=== PATIENT | female | born 1990 | race Two or more races ===

== ENCOUNTER 2024-08-09 22:42 | Inpatient (IN) | payer MEDICAID, OTHER ==
[~2024-08-09] VITALS: Ht 160 cm; Wt 85.5 kg
[2024-08-09 23:37] LABS: Urine Bacteria MANY /hpf (None Seen); Urine Blood Negative /uL (Negative); Urine Clarity Turbid (Clear); Urine Color Colorless (Yellow); Urine Protein, UAD Negative (Negative); Urine Specific Gravity 1.006 (1.001-1.035); Urine Squamous Epithelial Cell FEW /hpf (<5); Urine Urobilinogen Normal (Negative); Urine WBC 15 /HPF (0-5)
--- NOTE | 2024-08-09 23:49 | ED.PDOC ---
History of Present Illness HPI Comments 33 y/o obese F presents with 2x week history of nonradiating, lower abdominal pain, nausea, vomiting, and diarrhea. Patient endorses on additional onset of chills and blood in her stool, today. She reports only history of DM and HLD. Patient denies having any bloody or bilious vomitus, diarrhea, urinary symptoms, fever, chills, or further associated symptoms. Chief Complaint: Abdominal Pain Time Seen by MD: 23:20 Reviewed Notes: Nurses Notes, Medications, Allergies Allergies: Coded Allergies: NO KNOWN ALLERGIES (Unverified , 08/10/24) Information Source: Patient Mode of Arrival: Ambulatory Severity: Moderate Timing: Weeks Duration: Since onset Prehospital treatment: None Past Medical History PAST MEDICAL HISTORY: High Lipids, HTN Surgical History: Denies all surgeries All Other Systems: Reviewed and Negative (Comprehensive systems review obtained and negative except for what is stated in the HPI.) Physical Exam General Appearance: No Apparent Distress, Obese, Other (appears uncomfortable ) HEENT: Normal ENT Inspection, Pharynx Normal, TMs Normal Neck: Full Range of Motion, Non-Tender, Normal, Normal Inspection Respiratory: Chest Non-Tender, Lungs Clear, No Accessory Muscle Use, No Respiratory Distress, Normal Breath Sounds Cardiovascular: No Edema, No JVD, No Murmur, No Gallop, Normal Peripheral Pulses, Regular Rate/Rhythm Breast Exam: Deferred Gastrointestinal: No Organomegaly, Non Tender, No Pulsatile Mass, Normal Bowel Sounds, Soft Genitalia: Deferred Pelvic: Deferred Rectal: Deferred Extremities: No calf tenderness, Normal capillary refill, Normal inspection, Normal range of motion, Non-tender, No pedal edema Musculoskeletal : Apperance: Normal Neurologic: Alert, egg sorter II-XII nml as Tested, No Motor Deficits, Normal Affect, Normal Mood, No Sensory Deficits Cerebellar Function: Normal Reflexes: Normal Skin: Dry, Normal Color, Warm Lymphatic: No Adenopathy Was a procedure done? Was a procedure done?: No Differential Dx Considerations may include: gastritis, gastroenteritis, viral syndrome, spoiled food, , lower GI bleed, among others X-Ray, Labs, Meds, VS Vital Signs Date Time Temp Pulse Resp B/P (MAP) Pulse Ox O2 Delivery O2 Flow Rate FiO2 08/10/24 01:00 98.0 105 14 119/72 (88) 97 98.0 08/10/24 00:58 Room Air* 0 21 08/10/24 00:45 105 14 119/72 08/09/24 23:32 98.8 114 20 153/82 (105) 98 98.8 Lab Test 08/09/24 23:45 08/09/24 23:20 Range/Units White Blood Count 19.4 H 4.4-10.8 10^3/uL Red Blood Count 5.16 4.0-5.20 10^6/uL Hemoglobin 14.9 12.2-16.2 g/dL Hematocrit 43.9 36.0-46.0 % Mean Corpuscular Volume 85.2 80.0-100.0 fL Mean Corpuscular Hemoglobin 28.9 28.0-32.0 pg Mean Corpuscular Hemoglobin Concent 33.9 32.0-36.0 g/dL Red Cell Distribution Width 13.8 11.8-14.3 % Platelet Count 255 140-450 10^3/uL Mean Platelet Volume 10.5 6.9-10.8 fL Neutrophils (%) (Auto) 77.8 37.0-80.0 % Lymphocytes (%) (Auto) 14.2 10.0-50.0 % Monocytes (%) (Auto) 6.3 0.0-12.0 % Eosinophils (%) (Auto) 1.2 0.0-7.0 % Basophils (%) (Auto) 0.5 0.0-2.0 % Neutrophils # (Auto) 15.1 H 1.6-8.6 10 ^3/uL Lymphocytes # (Auto) 2.8 0.4-5.4 10 ^3/uL Monocytes # (Auto) 1.2 0-1.3 10 ^3/uL Eosinophils # (Auto) 0.2 0-0.8 10 ^3/uL Basophils # (Auto) 0.1 0-0.2 10 ^3/uL Nucleated Red Blood Cells 0.0 % Sodium Level 136 136-145 mmol/L Potassium Level 3.5 3.5-5.1 mmol/L Chloride Level 103 98-107 mmol/L Carbon Dioxide Level 21 20-31 mmol/L Anion Gap 12 5-15 Blood Urea Nitrogen 7 L 9-23 mg/dL Creatinine 0.62 0.550-1.02 mg/dL Glomerular Filtration Rate Calc 119 >90 mL/min BUN/Creatinine Ratio 11.3 10.0-20.0 Serum Glucose 138 H 74-106 mg/dL Calcium Level 9.7 8.7-10.4 mg/dL Total Bilirubin 1.2 H 0.2-1.0 mg/dL Aspartate Amino Transferase (AST) 31 <34 U/L Alanine Aminotransferase (ALT) 47 H 7-40 U/L Alkaline Phosphatase 97 46-116 U/L Total Protein 7.8 5.7-8.2 g/dL Albumin 4.8 3.2-4.8 g/dL Lipase 36 12-53 U/L Urine Color Colorless Yellow Urine Clarity Turbid H Clear Urine pH 6.0 5.0-9.0 Urine Specific [place] 1.006 1.001-1.035 Urine Protein Negative Negative Urine Ketones 2+ H Negative Urine Blood Negative Negative /uL Urine Nitrite Negative Negative Urine Bilirubin Negative Negative Urine Urobilinogen Normal Negative mg/dL Urine Leukocyte Esterase Trace Negative /uL Urine RBC 6 0 - 4 /hpf Urine Microscopic WBC 15 H 0-5 /HPF Urine Squamous Epithelial Cells Few <5 /hpf Urine Bacteria Many H None Seen /hpf Urine Glucose Normal Normal mg/dL Current Medications Medications (Trade) Dose Ordered Sig/Jennie Route Start Time Stop Time Status Last Admin Sodium Chloride 1,000 ml @ 1,000 mls/hr Q1H ONCE IV 08/09/24 23:30 08/10/24 00:29 DC 08/10/24 00:45 Ondansetron HCl (Zofran) 4 mg ONCE ONCE IV 08/09/24 23:30 08/09/24 23:31 DC 08/10/24 00:45 Famotidine (Pepcid Injection) 20 mg ONCE ONCE IV 08/09/24 23:30 08/09/24 23:31 DC 08/10/24 00:45 Morphine Sulfate 4 mg ONCE ONCE IV 08/09/24 23:30 08/09/24 23:31 DC 08/10/24 00:45 Time of 1ST Reevaluation: 23:50 Reevaluation 1ST: Unchanged Patient Education/Counseling: Diagnosis, Treatment Family Education/Counseling: No Family Present SEPSIS Sepsis Screen Date sepsis recognized/suspect: Aug 09, 2024 Time Sepsis recognized/suspect: 2299 Recent Procedure: No On Antibiotic Therapy: No Respiratory Rate >20: No Heart Rate >90: No Temp<36 C (96.8 F) or >38.3 C: No SBP <90 or MAP <65 mmHG: No New Acute Mental Status Change: No Is the patient on CPAP, BIPAP,: No Physician Orders Ct Ab Pel With Iv Con Only (08/09/24 23:26) Lactic Acid W/ Reflex Order (08/10/24 01:08) Blood Culture (08/10/24 01:08) NS (08/10/24 01:15) Cefazolin Ancef (08/10/24 01:15) Metronidazole Ivpb Flagyl (08/10/24 01:15) Vital Signs Date Time Temp Pulse Resp B/P (MAP) Pulse Ox O2 Delivery O2 Flow Rate FiO2 08/10/24 01:00 98.0 105 14 119/72 (88) 97 98.0 08/10/24 00:58 Room Air* 0 21 08/10/24 00:45 105 14 119/72 08/09/24 23:32 98.8 114 20 153/82 (105) 98 98.8 Laboratory Tests Test 08/09/24 23:45 White Blood Count 19.4 10^3/uL (4.4-10.8) H Medications Medications Dose Ordered Sig/Jennie Route Start Time Stop Time Status Last Admin Dose Admin Famotidine 20 mg ONCE ONCE IV 08/09/24 23:30 08/09/24 23:31 DC 08/10/24 00:45 Morphine Sulfate 4 mg ONCE ONCE IV 08/09/24 23:30 08/09/24 23:31 DC 08/10/24 00:45 Ondansetron HCl 4 mg ONCE ONCE IV 08/09/24 23:30 08/09/24 23:31 DC 08/10/24 00:45 Sodium Chloride 1,000 ml @ 1,000 mls/hr Q1H ONCE IV 08/09/24 23:30 08/10/24 00:29 DC 08/10/24 00:45 Departure 1 Departure Time of Disposition: 01:10 (Patient presented with abdominal pain that was concerning for possible appendicits, gastritis, cholecystitis, colitis, gastroenteritis, sbo, or orther possible surgical emergency. Data: 1. I ordered and reviewed the result of at least 3 labs including a CBC, BMP, and Urinalysis. 2. I independently interpreted the following tests: CT Abdoment and Pelvis is concerning for diffuse colitis .Risk:This patient has a high risk of morbidity due to further diagnostic testing or treatment and may suffer from an acute abdominal process disorder. Workup reveals diffuse colitis and patient should be admitted for further workup. and possible expert consultation. ) Impression: Primary Impression: Non-specific colitis Additional Impression: Intractable abdominal pain Disposition: ADMITTED INPATIENT Admit to: Med Surg Condition: Guarded Critical Care Note Critical Care Time?: Yes Critical care comment: Intractable abdominal pain Authorized and Performed by: Isha East MD Total critical care time: Approximately 42 minutes Due to a high probability of clinically significant, life threatening deterioration, the patient required my highest level of preparedness to intervene emergently and I personally spent this critical care time directly and personally managing the patient. This critical care time included obtaining a history; examining the patient; pulse oximetry; ordering and review of studies; arranging urgent treatment with development of a management plan; evaluation of patient's response to treatment; frequent reassessment; and, discussions with other providers. This critical care time was performed to assess and manage the high probability of imminent, life-threatening deterioration that could result in multi-organ failure. It was exclusive of separately billable procedures and treating other patients and teaching time. Please see my other sections and the rest of the note for further information on patient assessment and treatment. Stability Stability form required: No Heart Score Heart Score: Heart Score Response (Comments) Value History N/A 0 EKG N/A 0 Age N/A 0 Risk Factors N/A 0 Troponin N/A 0 Total 0 I personally scribed for ISHA EAST MD ([email or web address]) on 08/09/24 at 23:49. Electronically submitted by Douglas Sandoval ([email or web address]). ISHA EAST MD Aug 09, 2024 23:49
[2024-08-10 00:11] LABS: Basophils # (auto) 0.1 10 ^3/uL (0-0.2); Basophils % (auto) 0.5 % (0.0-2.0); Eosinophils # (auto) 0.2 10 ^3/uL (0-0.8); Eosinophils % (auto) 1.2 % (0.0-7.0); Hematocrit 43.9 % (36.0-46.0); Hemoglobin 14.9 g/dL (12.2-16.2); Lymphocytes # (auto) 2.8 10 ^3/uL (0.4-5.4); Lymphocytes % (auto) 14.2 % (10.0-50.0); Mean Corpuscular Hemoglobin 28.9 pg (28.0-32.0); Mean Corpuscular Hgb Conc. 33.9 g/dL (32.0-36.0); Mean Corpuscular Volume 85.2 fL (80.0-100.0); Monocytes # (auto) 1.2 10 ^3/uL (0-1.3); Monocytes % (auto) 6.3 % (0.0-12.0); Neutrophils # (auto) 15.1 10 ^3/uL (1.6-8.6); Neutrophils % (auto) 77.8 % (37.0-80.0); Platelet Count (auto) 255 10^3/uL (140-450); Red Blood Cells 5.16 10^6/uL (4.0-5.20); Red Cell Distribution Width 13.8 % (11.8-14.3); White Blood Cell 19.4 10^3/uL (4.4-10.8)
[2024-08-10 00:22] LABS: Albumin 4.8 g/dL (3.2-4.8); Alkaline Phosphatase 97 U/L (46-116); Anion Gap 12 (5-15); Aspartate Aminotransferase 31 U/L (<34); BUN/Creatinine Ratio 11.3 (10.0-20.0); Calcium 9.7 mg/dL (8.7-10.4); Carbon Dioxide 21 mmol/L (20-31); Chloride 103 mmol/L (98-107); Lipase 36 U/L (12-53); Potassium 3.5 mmol/L (3.5-5.1); Sodium 136 mmol/L (136-145); Total Protein 7.8 g/dL (5.7-8.2)
[2024-08-10 00:28] LABS: Alanine Aminotransferase 47 U/L (7-40); Bilirubin, Total 1.2 mg/dL (0.2-1.0); Blood Urea Nitrogen 7 mg/dL (9-23); Glucose 138 mg/dL (74-106)
[2024-08-10] MEDS: SODIUM CHLORIDE 0.9% 1,000 ML IV ONE ×2 (00:45→01:41)
[2024-08-10] MEDS: IOHEXOL 300 MG/ML 100ML BOTTLE IJ ONE (00:45)
[2024-08-10] MEDS: ONDANSETRON HCL 4 MG/2 ML VIAL IV ONE (00:45)
[2024-08-10] MEDS: MORPHINE SULFATE 4 MG/ML SYR/VIAL IV ONE (00:45)
[2024-08-10] MEDS: FAMOTIDINE (10MG/ML) 2ML VL IV ONE (00:45)
--- NOTE | 2024-08-10 00:48 | DVH ---
Exam: CT CT AB PEL WITH IV CON ONLY History: abdominal pain, brbpr COMPARISON: None Technique: Multidetector spiral CT of the abdomen and pelvis was performed from lung bases to pubic s ymphysis. Intravenous contrast was administered during this examination. Portal venous imaging was obtained. Axial, coronal and sagittal multiplanar reformats were performed by the technologist on a separate workstation. Radiation Dose : 1. Abdomen/Pelvis: CTDIvol 20 mGy, DLP 1222 mGy*cm. CONTRAST: Type of contrast: Omnipaque Contrast injected: 100 ml Findings: Lung Bases: No acute or significant lung base finding. Normal heart size. No pleural or pericardial effusion. Liver: The liver is normal in size. No focal lesions. Normal hepatic vascular enhancement. Diffuse s teatosis. Gallbladder and Biliary Tree: Unremarkable Spleen: Unremarkable Pancreas: The pancreas is normal in appearance without focal lesions or abnormal enhancement. Adrenal Glands: Unremarkable Kidneys: No hydronephrosis. Bladder: Unremarkable Bowel: The stomach is grossly normal in appearance. Concentric wall thickening throughout the descend ing colon and sigmoid colon is suggestive of infectious/inflammatory colitis. The appendix is not vi sualized; however, no secondary findings of acute appendicitis identified. Ascites: Absent Lymphadenopathy: No mesenteric, retroperitoneal or periportal lymphadenopathy. Abdominal Wall and Mesentery: Unremarkable. Vasculature: The visualized abdominal aorta is normal in size and caliber. Abdominal and pelvic vess els demonstrate normal enhancement. Pelvic Organs: Unremarkable Musculoskeletal: No aggressive focal bony lesions, acute fractures or dislocation. IMPRESSION: 1. Concentric wall thickening throughout the descending colon and sigmoid colon is suggestive of infe ctious/inflammatory colitis. 2. Hepatic steatosis. Radiation optimization: All CT scans at this facility use at least one of these dose optimization jay hniques: automated exposure control mA and/or kV adjustment per patient size (includes targeted exam s where dose is matched to clinical indication) or iterative reconstruction.
[2024-08-10] MEDS: metroNIDAZOLE 500MG/100ML 100 ML IV ONE (01:35)
[2024-08-10] MEDS: ceFAZolin 2 GM/D5W50ml 50 ML IV ONE (03:54)
[2024-08-10] MEDS: PROCHLORPERAZINE EDISYLATE 5 MG/ML 2ML VIAL IV ONE (03:54)
[2024-08-10] MEDS: PROCHLORPERAZINE EDISYLATE 5 MG/ML 2ML VIAL ONE (03:54)
[2024-08-10] MEDS ORDERED: ACETAMINOPHEN 325 MG TAB PO PRN (04:15)
[2024-08-10] MEDS ORDERED: LOPERAMIDE HCL 2 MG CAP/TAB PO PRN (04:15)
[2024-08-10] MEDS ORDERED: ONDANSETRON HCL 4 MG/2 ML VIAL IV PRN (04:15)
[2024-08-10] MEDS ORDERED: HYDROcodone-ACET 5/325MG TAB PO PRN (04:15)
[2024-08-10] MEDS ORDERED: MORPHINE SULFATE INJ 2 MG/ml SYRG IV PRN (04:15)
--- NOTE | 2024-08-10 04:31 | DVHHP2 ---
History of Present Illness Reason for Visit: Abdominal pain History of Present Illness 33-year-old female presents for evaluation of lower abdominal pain that has been ongoing for the past two weeks. She also reports nausea, vomiting and watery diarrhea. She states over the past two days she has developed intermittent fever as well. Denies any other acute complaints at the moment. Past Medical History Dyslipidemia and diabetes mellitus Past Surgical History Denies Family History Noncontributory Smoke: No ALCOHOL: occassional Drugs: None Lives: with Family Review of Systems Review of Systems Review of systems are currently negative otherwise addressed in HPI. Allergies: Coded Allergies: NO KNOWN ALLERGIES (Unverified , 08/10/24) Medications Current Medications Medications Dose Ordered Sig/Jennie Route Start Time Stop Time Status Last Admin Dose Admin Metronidazole 100 ml @ 100 mls/hr Q8HR IV 08/10/24 06:00 UNV Ceftriaxone Sodium 50 ml @ 100 mls/hr DAILY@09 IV 08/10/24 09:00 UNV Acetaminophen/ Hydrocodone Bitart 1 tab Q4HP PRN PO 08/10/24 04:15 Ondansetron HCl 4 mg Q4HP PRN IV 08/10/24 04:15 Acetaminophen 650 mg Q6HP PRN PO 08/10/24 04:15 Morphine Sulfate 2 mg Q4HPRN PRN IV 08/10/24 04:15 Loperamide HCl 2 mg PRN PRN PO 08/10/24 04:15 Pantoprazole Sodium 40 mg DAILY IV 08/10/24 10:00 UNV Exam Vital Signs Vital Signs Date Time Temp Pulse Resp B/P (MAP) Pulse Ox O2 Delivery O2 Flow Rate FiO2 08/10/24 01:00 98.0 105 14 119/72 (88) 97 98.0 08/10/24 00:58 Room Air* 0 21 Exam Gen: 33-year-old female in mild distress, obese Skin: Warm, dry, normal color and texture, no rash. HEENT: Normocephalic atraumatic, mucous membranes moist and pink. Neck: Cervical and supraclavicular nodes normal without enlargement, trachea is midline, thyroid gland is normal without masses. Pulmonary: Clear to auscultation and percussion bilaterally. Cardiac: Regular rate and rhythm. No murmur Abdomen: Soft, lower abdominal tenderness, nondistended, bowel sounds present all 4 quadrants, no guarding, no rigidity, no organomegaly. Extremities: No cyanosis, clubbing, no edema Neuro: Cranial nerves II through XII grossly intact, normal affect and speech, no focal motor deficits. Labs/Xrays ORDERING PHYSICIAN: ISHA TOWNSEND MD PROCEDURE(s): ABPLIV - CT AB PEL WITH IV CON ONLY REASON: abdominal pain, brbpr ORDER NUMBER(s): [id number], ACCESSION NUMBER(s): [id number] Exam: CT CT AB PEL WITH IV CON ONLY History: abdominal pain, brbpr COMPARISON: None Technique: Multidetector spiral CT of the abdomen and pelvis was performed from lung bases to pubic symphysis. Intravenous contrast was administered during this examination. Portal venous imaging was obtained. Axial, coronal and sagittal multiplanar reformats were performed by the technologist on a separate workstation. Radiation Dose : 1. Abdomen/Pelvis: CTDIvol 20 mGy, DLP 1222 mGy*cm. CONTRAST: Type of contrast: Omnipaque Contrast injected: 100 ml Findings: Lung Bases: No acute or significant lung base finding. Normal heart size. No pleural or pericardial effusion. Liver: The liver is normal in size. No focal lesions. Normal hepatic vascular enhancement. Diffuse steatosis. Gallbladder and Biliary Tree: Unremarkable Spleen: Unremarkable Pancreas: The pancreas is normal in appearance without focal lesions or abnormal enhancement. Adrenal Glands: Unremarkable Kidneys: No hydronephrosis. Bladder: Unremarkable Bowel: The stomach is grossly normal in appearance. Concentric wall thickening throughout the descending colon and sigmoid colon is suggestive of infectious/inflammatory colitis. The appendix is not visualized; however, no secondary findings of acute appendicitis identified. Ascites: Absent Lymphadenopathy: No mesenteric, retroperitoneal or periportal lymphadenopathy. Abdominal Wall and Mesentery: Unremarkable. Vasculature: The visualized abdominal aorta is normal in size and caliber. Abdominal and pelvic vessels demonstrate normal enhancement. Pelvic Organs: Unremarkable Musculoskeletal: No aggressive focal bony lesions, acute fractures or dislocation. IMPRESSION: 1. Concentric wall thickening throughout the descending colon and sigmoid colon is suggestive of infectious/inflammatory colitis. 2. Hepatic steatosis. Radiation optimization: All CT scans at this facility use at least one of these dose optimization techniques: automated exposure control mA and/or kV adjustment per patient size (includes targeted exams where dose is matched to clinical indication) or iterative reconstruction. Labs Test 08/10/24 01:14 08/09/24 23:45 08/09/24 23:20 Range/Units Lactic Acid Level 1.2 0.4-2.0 mmol/L White Blood Count 19.4 H 4.4-10.8 10^3/uL Red Blood Count 5.16 4.0-5.20 10^6/uL Hemoglobin 14.9 12.2-16.2 g/dL Hematocrit 43.9 36.0-46.0 % Mean Corpuscular Volume 85.2 80.0-100.0 fL Mean Corpuscular Hemoglobin 28.9 28.0-32.0 pg Mean Corpuscular Hemoglobin Concent 33.9 32.0-36.0 g/dL Red Cell Distribution Width 13.8 11.8-14.3 % Platelet Count 255 140-450 10^3/uL Mean Platelet Volume 10.5 6.9-10.8 fL Neutrophils (%) (Auto) 77.8 37.0-80.0 % Lymphocytes (%) (Auto) 14.2 10.0-50.0 % Monocytes (%) (Auto) 6.3 0.0-12.0 % Eosinophils (%) (Auto) 1.2 0.0-7.0 % Basophils (%) (Auto) 0.5 0.0-2.0 % Neutrophils # (Auto) 15.1 H 1.6-8.6 10 ^3/uL Lymphocytes # (Auto) 2.8 0.4-5.4 10 ^3/uL Monocytes # (Auto) 1.2 0-1.3 10 ^3/uL Eosinophils # (Auto) 0.2 0-0.8 10 ^3/uL Basophils # (Auto) 0.1 0-0.2 10 ^3/uL Nucleated Red Blood Cells 0.0 % Sodium Level 136 136-145 mmol/L Potassium Level 3.5 3.5-5.1 mmol/L Chloride Level 103 98-107 mmol/L Carbon Dioxide Level 21 20-31 mmol/L Anion Gap 12 5-15 Blood Urea Nitrogen 7 L 9-23 mg/dL Creatinine 0.62 0.550-1.02 mg/dL Glomerular Filtration Rate Calc 119 >90 mL/min BUN/Creatinine Ratio 11.3 10.0-20.0 Serum Glucose 138 H 74-106 mg/dL Calcium Level 9.7 8.7-10.4 mg/dL Total Bilirubin 1.2 H 0.2-1.0 mg/dL Aspartate Amino Transferase (AST) 31 <34 U/L Alanine Aminotransferase (ALT) 47 H 7-40 U/L Alkaline Phosphatase 97 46-116 U/L Total Protein 7.8 5.7-8.2 g/dL Albumin 4.8 3.2-4.8 g/dL Lipase 36 12-53 U/L Urine Color Colorless Yellow Urine Clarity Turbid H Clear Urine pH 6.0 5.0-9.0 Urine Specific [place] 1.006 1.001-1.035 Urine Protein Negative Negative Urine Ketones 2+ H Negative Urine Blood Negative Negative /uL Urine Nitrite Negative Negative Urine Bilirubin Negative Negative Urine Urobilinogen Normal Negative mg/dL Urine Leukocyte Esterase Trace Negative /uL Urine RBC 6 0 - 4 /hpf Urine Microscopic WBC 15 H 0-5 /HPF Urine Squamous Epithelial Cells Few <5 /hpf Urine Bacteria Many H None Seen /hpf Urine Glucose Normal Normal mg/dL Assessment/Plan Assessment/Plan Assessment Acute colitis Abdominal pain Leukocytosis Obesity Diabetes mellitus Plan Admit the patient to Med surge to the hospitalist Rocepalonzo/Flagyl GI consult Clear liquid diet Pain management Continue treatment per orders. Plan discussed with: Patient My Orders Orders - LETICIA MONTERO Procedure Category Date Status Time Stool Bacterial AJ 08/10/24 Logged Culture 04:15 Stool Occult Blood LAB 08/10/24 Logged 04:15 Clostridium Difficile AJ 08/10/24 Logged Toxin 04:15 * Gi Dvh Screening Technician CONS 08/10/24 Transmitted 04:15 Metronidazole PHA 08/10/24 Logged 500mg/100ml (Flagyl 06:00 Ceftriaxone 1gm/50ml PHA 08/10/24 Logged D5w (Rocephin) 09:00 Basic Metabolic Panel LAB 08/11/24 Verified 04:00 Admit ADMIT 08/10/24 Transmitted 04:15 Hydrocodone-Acet PHA 08/10/24 In Process 5/325mg Tab ([place] 04:15 Ondansetron Hcl PHA 08/10/24 In Process (Zofran) 04:15 Complete Blood Count LAB 08/11/24 Verified 04:00 Condition: Stable LISA 08/10/24 In Process 04:15 Acetaminophen Tablet PHA 08/10/24 In Process (Tylenol Tablet) 04:15 Clear Liq Diet DIET 08/10/24 Transmitted Breakfast Bedrest With Bathroom LISA 08/10/24 In Process Privileg 04:15 Morphine Sulfate PHA 08/10/24 In Process Injection 04:15 Loperamide Capsule PHA 08/10/24 In Process (Imodium Capsule) 04:15 Pantoprazole PHA 08/10/24 Logged (Protonix) 10:00 Date of Service: Aug 10, 2024 Billing Provider: LETICIA MONTERO Common Visit Codes: [id number] INP/OBS CARE (MOD) LETICIA MONTERO Aug 10, 2024 04:30
[2024-08-10 07:46] VITALS: BP 121/75; PULSE 113; RESP 18; TEMP 99.1; O2SAT 95
[2024-08-10] MEDS: PANTOPRAZOLE 40 MG/10 ML VIAL INJ IV SCH (08:43)
[2024-08-10] MEDS: cefTRIAXone 1GM/50ML D5W 50 ML IV SCH (08:43)
[2024-08-10] MEDS: metroNIDAZOLE 500MG/100ML 100 ML IV SCH (08:48)
--- NOTE | 2024-08-10 16:50 | DVHDS2 ---
Discharge Summary Date of Admission Aug 10, 2024 at 04:15 Date of Discharge: Aug 10, 2024 Admitting Diagnosis Acute Colitis Labs/Diagnostic Data: Laboratory Results Test 08/10/24 01:14 08/09/24 23:45 08/09/24 23:20 Lactic Acid Level 1.2 mmol/L (0.4-2.0) White Blood Count 19.4 10^3/uL (4.4-10.8) Red Blood Count 5.16 10^6/uL (4.0-5.20) Hemoglobin 14.9 g/dL (12.2-16.2) Hematocrit 43.9 % (36.0-46.0) Mean Corpuscular Volume 85.2 fL (80.0-100.0) Mean Corpuscular Hemoglobin 28.9 pg (28.0-32.0) Mean Corpuscular Hemoglobin Concent 33.9 g/dL (32.0-36.0) Red Cell Distribution Width 13.8 % (11.8-14.3) Platelet Count 255 10^3/uL (140-450) Mean Platelet Volume 10.5 fL (6.9-10.8) Neutrophils (%) (Auto) 77.8 % (37.0-80.0) Lymphocytes (%) (Auto) 14.2 % (10.0-50.0) Monocytes (%) (Auto) 6.3 % (0.0-12.0) Eosinophils (%) (Auto) 1.2 % (0.0-7.0) Basophils (%) (Auto) 0.5 % (0.0-2.0) Neutrophils # (Auto) 15.1 10 ^3/uL (1.6-8.6) Lymphocytes # (Auto) 2.8 10 ^3/uL (0.4-5.4) Monocytes # (Auto) 1.2 10 ^3/uL (0-1.3) Eosinophils # (Auto) 0.2 10 ^3/uL (0-0.8) Basophils # (Auto) 0.1 10 ^3/uL (0-0.2) Nucleated Red Blood Cells 0.0 % Stool Occult Blood Negative (Negative) Stool Occult Blood Sample #3 (Negative) Sodium Level 136 mmol/L (136-145) Potassium Level 3.5 mmol/L (3.5-5.1) Chloride Level 103 mmol/L (98-107) Carbon Dioxide Level 21 mmol/L (20-31) Anion Gap 12 (5-15) Blood Urea Nitrogen 7 mg/dL (9-23) Creatinine 0.62 mg/dL (0.550-1.02) Glomerular Filtration Rate Calc 119 mL/min (>90) BUN/Creatinine Ratio 11.3 (10.0-20.0) Serum Glucose 138 mg/dL (74-106) Calcium Level 9.7 mg/dL (8.7-10.4) Total Bilirubin 1.2 mg/dL (0.2-1.0) Aspartate Amino Transferase (AST) 31 U/L (<34) Alanine Aminotransferase (ALT) 47 U/L (7-40) Alkaline Phosphatase 97 U/L (46-116) Total Protein 7.8 g/dL (5.7-8.2) Albumin 4.8 g/dL (3.2-4.8) Lipase 36 U/L (12-53) Urine Color Colorless (Yellow) Urine Clarity Turbid (Clear) Urine pH 6.0 (5.0-9.0) Urine Specific [place] 1.006 (1.001-1.035) Urine Protein Negative (Negative) Urine Ketones 2+ (Negative) Urine Blood Negative /uL (Negative) Urine Nitrite Negative (Negative) Urine Bilirubin Negative (Negative) Urine Urobilinogen Normal mg/dL (Negative) Urine Leukocyte Esterase Trace /uL (Negative) Urine RBC 6 /hpf (0 - 4) Urine Microscopic WBC 15 /HPF (0-5) Urine Squamous Epithelial Cells Few /hpf (<5) Urine Bacteria Many /hpf (None Seen) Urine Glucose Normal mg/dL (Normal) Other Laboratory Tests 08/09/24 23:45 Brief Hx & Hospital Course: Patient left AMA for abdominal pain. Condition at Discharge: Poor Final Diagnosis/Problems List Acute colitis Abdominal pain Leukocytosis Obesity Diabetes mellitus Discharge Disposition: AMA Discharge Statement: "Patient was advised to return to the ER or call 911 if any headaches, dizziness, shortness of breath, chest pain, abdominal pain, bleeding, fevers, or worsening of medical condition. Patient was counseled about treatment plan, medications, possible side effects, patientverbalized understanding. All questions were answered to the best of my ability. This discharge took greater then 30 minutes in planning, reviewing documentation, counseling the patient, and discussing with other team members." ASSESSMENT ASSESSMENT Assessment Date of Service: Aug 10, 2024 Billing Provider: CAT ROWLEY MD Common Visit Codes: [id number] DISCH DAY <30MIN CAT ROWLEY MD Aug 10, 2024 16:50
== END 2024-08-10 11:09 | disposition left against medical advice (07) | DRG 248 ==
LOC: ER 22:47 → OVERFLOW 08-10 04:15
PROVIDERS: ADMIT Internal Medicine; ATTEND Internal Medicine
DX: A04.72 Enterocolitis due to Clostridium difficile, not specified as recurrent (principal); E11.9 Type 2 diabetes mellitus without complications; E66.9 Obesity, unspecified; I10 Essential (primary) hypertension; Z68.33 Body mass index [BMI] 33.0-33.9, adult; E78.5 Hyperlipidemia, unspecified; Z53.29 Procedure and treatment not carried out because of patient's decision for other reasons
CPT/HCPCS: 36415; 74177; 80053; 81001; 82270; 83605; 83690; 85025; 87040; 87045; 87427; 87493; 99291; G0378; J2405; J2470; J3490